=== PATIENT | male | born 1945 | race Caucasian/White ===

== ENCOUNTER 2018-12-01 07:33 | Inpatient (IN) | payer MEDICARE, OTHER, SELFPAY ==
[2018-11-26 09:45] VITALS: BMI 31.3
[2018-12-01] VITALS (14 sets, daily range): BP systolic 90–159; BP diastolic 47–93; PULSE 65–86; RESP 9–20; TEMP 36.1–37; O2SAT 88–99; BMI 31.5
[2018-12-01] MEDS: LACTATED RINGERS 1,000 ML 42 ML IV ×2 (08:00→12:30)
[2018-12-01] MEDS: PREGABALIN 75 MG CAPSULE PO (08:14)
[2018-12-01] MEDS: ACETAMINOPHEN 325 MG TABLET 975 MG PO ×3 (08:14→19:51)
[2018-12-01] MEDS: CELECOXIB 200 MG CAPSULE PO (08:15)
--- NOTE | 2018-12-01 09:45 | DI.RAD.S_ITS ---
PROCEDURE: XR PELVIS 1-2V INDICATIONS: anterior right YSABEL TECHNIQUE: 1 view of the lower pelvis acquired. COMPARISON: None. FINDINGS: Bones: Patient is status post right hip arthroplasty, with hardware components in expected positions. The hip joint appears congruent. The visualized bony structures appear intact. Soft tissues: Overlying postoperative changes are noted. No suspicious soft tissue densities. IMPRESSION: Post right total hip arthroplasty changes with anatomic right hip alignment. Dictated by: Jeramie Bishop M.D. on 12/01/2018 at 14:14 Approved by: Jreamie Bishop M.D. on 12/01/2018 at 14:14
--- NOTE | 2018-12-01 10:41 | PM.PREOP ---
Pre-operative Note Interval Note History & Physical reviewed/Exam performed by Physician: Yes Changes to H&P: No
[2018-12-01] MEDS: TRANEXAMIC ACID 1,000 MG VIAL 2000 MG INJ ×2 (10:58→12:50)
[2018-12-01] MEDS: CEFAZOLIN 2 GM/100 ML FROZ.PIGGY IV ×2 (11:02→19:51)
--- NOTE | 2018-12-01 11:48 | SUR.OPER ---
Supine, head on pillow, torso on pink pad positioner. Iliac crest at flex of foot end of table. Gel roll under operative hip. Both arms secured on arm boards <90 degrees abduction.
[2018-12-01] MEDS: ROPIVACAINE 0.5% PF 5 MG/ML 20ML VIAL 60 ML INJ (11:54)
[2018-12-01] MEDS: MORPHINE 4 MG/ML INJ INJ (11:57)
[2018-12-01] MEDS: KETOROLAC 30 MG/ML VIAL IV (11:57)
--- NOTE | 2018-12-01 13:24 | PM.OP.1 ---
Operative Date/Time/Diagnoses Date of procedure: 12/01/18 Time of procedure: 13:24 Pre-op diagnosis: Right hip degenerative joint disease Post-op diagnosis: same Procedure & Clinicians Procedure: Right total hip arthroplasty via direct anterior approach (CPT code 27289 with patient care assistant) Same procedure as scheduled: Yes Indications: Patient is an 73-year-old male with severe right hip DJD. The patient has pain with activities and at rest, limited ambulation and activity tolerance, difficulties with ADLs, and failure of conservative treatment. We have discussed the nature of condition, treatment options, risks and benefits, and patient elects to proceed with total hip arthroplasty via direct anterior approach and gives informed consent. Surgeon: Delonte Hopkins Production Or Plant Engineer: Huseyin Mitchell Anesthesia Type: General and Spinal Operative Notes Closure Type: primary Specimen(s): none sent Prosthetic devices, grafts, tissues, transplants, or devices: Acetabulum: Nelson and Nephew R3 acetabular component size 58 mm Femoral component: Nelson and Nephew Anthology stem size 10 with standard offset Femoral head: 36 mm + 4 Oxinium Estimated Blood Loss (mL): 150 Blood products transfused: none Procedure in detail: After satisfactory induction anesthetic and administration of antibiotics patient placed supine on the Butler table with both feet in the ski boots and all bony prominences well padded. Right hip and lower extremity prepped and draped in usual sterile fashion then incision created beginning just distal and lateral to the ASIS. Carried sharply through the skin and subcutaneous tissue down to the fascia overlying the TFL which was then divided longitudinally. Muscle belly was stripped posteriorly and the intermuscular interval developed. Retractor placed on the superior femoral neck and a Gelpi retractor placed distally. Anterior circumflex vessels identified and cauterized then the pericapsular fat was stripped off the anterior capsule. Capsulotomy performed and and inferior capsule capsulotomy and release was performed. Lateral capsulectomy was performed. Level of the femoral neck cut was identified fluoroscopically and the femoral neck completed with the oscillating saw. Femoral head removed with corkscrew device. Acetabular retractors then placed and acetabular labrum and osteophytes were excised. Sequential reaming of the acetabulum to 57 mm was performed with an excellent circumferential ream and fit with the trial. The fit and position of the trial were confirmed with fluoroscopy. Size 58 mm Nelson Nephew R3 acetabular component was selected inserted and impacted into position under fluoroscopic guidance. After satisfactory position and fixation achieved permanent liner then inserted. The leg was then extended externally rotated maximally and abducted and proximal femoral retractors placed. Lateral femoral neck then entered with a box osteotome, then sequential broaching was performed, fluoroscopic images checked with the #[address] to confirm satisfactory position and alignment. Sequential broaching was performed to size 10 and the 10 broach was confirmed satisfactory and left in place for trial reduction which yielded excellent leg length range of motion and stability characteristics and all confirmed in good position with fluoroscopy. The hip was then dislocated and the broach replaced with a permanent size 10 Nelson and Nephew anthology component with a standard offset. Another trial reduction was performed with a +4 ball has was preoperatively templated and this yielded the above characteristics. Trial ball was then replaced with a 36 mm +4 Oxinium head. Hip was reduced and final fluoroscopic images taken confirming satisfactory placement and position of all implants. The hip was stable to at least 90? of external rotation. Hip was copiously irrigated and periarticular soft tissues infiltrated with combination of ropivacaine morphine and Toradol. TFL fascia closed with a running 1. Vicryl. Subcutaneous layer closed with 2 O Vicryl in intracuticular locking stitch as well as skin glue. Sterile dressings applied anesthetic terminated and patient taken to postanesthetic recovery in satisfactory condition. Complications: none Post-operative Condition: stable Disposition: PACU Plan for aftercare: Patient will be admitted to the acute care [facility], and anticipate discharge on postop day 1 with follow-up in office in 10-14 days. Outpatient physical therapy will be arranged and patient will continue to gradually increase activity as tolerated.
--- NOTE | 2018-12-01 14:18 | PC.NURSE ---
Pt weighs 94.4kg
[2018-12-01] MEDS: LACTATED RINGERS 1,000 ML 125 ML IV ×2 (14:27→21:52)
--- NOTE | 2018-12-01 14:57 | CM.MNRNOTE ---
Post-op: Arrived to room 206 at 1400. Wide awake and alert, oriented X3. BLE's with numbness, R>L. Able to wiggle toes, feet are pink and warm w/ cap refill <2 sec. Dressing to R hip C/D/I. Room air, vitals stable. Rated R hip discomfort /10, given scheduled Tylenol. Denies N/V. SCD's to BLE's. Oriented to room and call light, encouraged to make needs known. Call light in reach, bed alarm on. Urinal within reach.
[2018-12-01] MEDS: ASPIRIN EC 81 MG TABLET PO (19:51)
[2018-12-01] MEDS: HYDROCODONE/ACET 5/325 TABLET 1 TAB PO (22:30)
[2018-12-02 00:19] VITALS: BP 118/68; PULSE 88; RESP 14; TEMP 36.6; O2SAT 95
--- NOTE | 2018-12-02 01:25 | PC.NURSE ---
Addendum entered by Germaine Torres R.N. 12/02/18 05:53: Slept most of night. States pain is 1/10 this morning and declines ice and/or pain meds. Still with numbness in anterior right upper leg from knee to approximately 6 up. Original Note: 0020 Patient is alert and oriented. Breath sounds CTA with RA sat of 95%. HRR. Denies nausea. BT present and has passed flatus. Voiding per urinal; denies dysuria, frequency or urgency. Is able to turn himself in bed. Aquacel dressing to anterior right hip is CDI. States pain is minimal at 1/10; ice pack applied. Has numbness in anterior right thigh but otherwise CMS is intact. Is unable to lift right leg off bed but can move the leg. SCD's applied at shift change. Fall risk score is moderate; bed alarm is activated. rooming in.
[2018-12-02] MEDS: CEFAZOLIN 2 GM/100 ML FROZ.PIGGY IV (03:02)
[2018-12-02 06:18] VITALS: BP 150/75; PULSE 87; RESP 16; TEMP 36.8; O2SAT 95
[2018-12-02 07:05] LABS: Hemoglobin 12.8 g/dL (13.5-17.5)
[2018-12-02 07:55] VITALS: BP 126/74; PULSE 81; RESP 18; TEMP 36.9; O2SAT 95
[2018-12-02 09:01] VITALS: PULSE 80; RESP 19; O2SAT 94
--- NOTE | 2018-12-02 09:08 | CM.DANOTE ---
DCP; Case received, EMR reviewed and met with patient. Introduced self and role. Was able to obtain baseline health history from patient. , Rosio, at bedside. DCP template/assessment completed with information currently available. Patient is a 73 year old male who admitted yesterday morning to the care of the orthopedic team. [facility] for a surgical procedure. He had right hip surgery, secondary to history of osteoarthritis. Met with patient in room. Pleasant, alert and oriented. Spouse, Rosio, also at bedside. They both reside on [place]. Patient is independent at home. He has outpatient P.T. already set up, but has not yet worked with physical therapy team. P: Patient is to be discharged home today, pending working with physical therapy team. Lizbeth Owen RN/Clinic Administrator
[2018-12-02] MEDS: SODIUM CHLORIDE 0.9% FLUSH 10 ML IV (09:37)
[2018-12-02] MEDS: HYDROCODONE/ACET 5/325 TABLET 1 TAB PO ×2 (09:38→12:31)
[2018-12-02] MEDS: ACETAMINOPHEN 325 MG TABLET 975 MG PO (09:38)
[2018-12-02] MEDS: ASPIRIN EC 81 MG TABLET PO (09:38)
--- NOTE | 2018-12-02 10:01 | PM.DS.1 ---
History of Present Illness History of Present Illness Date Patient Seen: 12/02/18 Time Patient Seen: 10:01 Chief complaint: [id number] Narrative: Please see HPI previously recorded in chart. Discharge Providers Provider Date of admission: 12/01/18 07:33 Discharge Date: 12/02/18 Consults: 12/01/18 14:00 Consult to Discharge Planning Routine Comment: Consult to Physical Therapy Evaluate & Treat Comment: Physician Instructions: post op YSABEL protocol Consult to Respiratory Therapy Evaluate & Treat Comment: Physician Instructions: Evaluate and treat Discharge provider: Katya Godinez PA-C Summary Hospital Course Discharge Diagnosis: S/p Right anterior YSABEL Hospital Course: Patient is an 73-year-old male with severe right hip DJD. The patient had pain with activities and at rest, limited ambulation and activity tolerance, difficulties with ADLs, and failure of conservative treatment. The nature of condition, treatment options, risks and benefits, were discussed with the patient and he elected to proceed with total hip arthroplasty via direct anterior approach and gave informed consent. He was taken to the operating room 12/01/18 where he underwent a right anterior total hip arthroplasty with Dr. Hopkins which he tolerated well without complications. Afterwards he was taken to the acute care [facility] where he has been progressing well postoperatively. Post op day #1 his pain has been well controlled with Hydrocodone which he has tolerated without rash or itching. He has not yet mobilized about the room, but will later today with physical therapy. He is voiding normally and has tolerated a diet. He has a good support system at home and his will be caring for him. He will be discharged with supply of [facility] for pain and Lovenox for DVT prophylaxis. Patient is medically stable for discharge later today pending clearance by physical therapy. Status at Discharge Cognitive/behavioral status at discharge: oriented Functional status at discharge: uses cane/walker Overall status at discharge: patient is progressing back to baseline Exam Vital Signs (past 8 hours): - 12/02/18 06:18 12/02/18 07:55 12/02/18 09:01 Temperature 98.2 F 98.4 F Pulse Rate 87 81 80 Respiratory Rate 16 18 19 Blood Pressure 150/75 H 126/74 Pulse Oximetry 95 95 94 Oxygen Delivery Method Room Air Oxygen Flow Rate 0 Narrative Exam Narrative: 73 year old male resting comfortably in bed. Alert and oriented in no acute distress. Dressing in place over right anterior hip is CDI. Intact motor function in distal extremity. SILT. Calves soft, compressible. Palpable pedal pulse. Objective Labs Result Diagrams: 12/02/18 06:42 Labs: Laboratory Results - last 24 hr 12/02/18 06:42 Hgb 12.8 L Hct 38.0 L Discharge Plan Discharge Plan Patient Disposition: Home Discharge comment: Home this afternoon if cleared by PT Discharge Med Rec/Prescriptions Prescriptions: New aspirin 81 mg Tablet,Delayed Release (Dr/Ec) 81 mg PO BID Qty: 40 RF: 0 hydrocodone-acetaminophen 5-325 mg Tablet 1 tab PO Q4HR PRN (Reason: Pain, Moderate (4-6)) Qty: 40 RF: 0 enoxaparin [Lovenox] 40 mg/0.4 mL Syringe 40 mg subcut DAILY 9 Days RF: 0 Continued pravastatin 40 mg Tablet 40 mg PO QPM RF: 0 acetaminophen [Tylenol Extra Strength] 500 mg Tablet 1,000 mg PO DAILY PRN (Reason: Pain) RF: 0 ibuprofen 200 mg Tablet 400 mg PO Q6H PRN (Reason: Pain) RF: 0 omeprazole 20 mg Capsule,Delayed Release(Dr/Ec) 20 mg PO QPM RF: 0 Follow up/Referrals: Delonte Hopkins MD [Physician] - As previously scheduled Provider Discharge Instructions Diet: Diet as Tolerated Activity: Weight bear as tolerated. Please use walker or cane for support. Cold/Heat Therapy: Ice packs as needed. Other treatments: Please see [facility] guide. Skin/Wound/Dressing Care Report to your healthcare provider any signs of infection, such as:: chills, fever, night sweats, unusual drainage and unusual redness Dressing: Dressing is to remain in place. Please let the office know if dressing becomes saturated. Visit Report/Discharge Packet Instructions: DI for Hip Replacement Visit Report Forms: Stroke Signs & Symptoms Quality VTE Deep Vein Thrombosis/Pulmonary Embolism Present on Admission: No
--- NOTE | 2018-12-02 10:59 | PT.IIE ---
Addendum entered and electronically signed by Padmini Carmona PT 12/02/18 11:19: FWW dispensed. Original Note: Current Diagnoses Unilateral primary osteoarthritis, right hip (12/01/18) Spinal stenosis, lumbar region with neurogenic claudication (12/01/18) Strain of muscle, fascia and tendon at neck level, initial encounter (12/01/18) Surgery Performed Operation Date: 12/01/18 09:45 Actual Procedures p Total Hip Arthroplasty/Anterior Approach(Right) - Delonte Hopkins MD Surgical History (Last Updated 11/26/18 @ 10:13 by Meghana Elliott RN) H/O vasectomy (Acute) History of bilateral knee arthroplasty (Acute ~2009) Hx of cholecystectomy (Acute ~2010) Hx of eye surgery (Acute ~12/2017) S/P epidural steroid injection (Acute) Medical History (Last Updated 11/26/18 @ 10:13 by Meghana Elliott RN) DDD (degenerative disc disease), lumbar (Acute) GERD (gastroesophageal reflux disease) (Acute) HLD (hyperlipidemia) (Acute) Kidney stones (Acute) Osteoarthritis (Acute) Physical Therapy Inpatient Evaluation/Re-Eval M1 PT/OT-IP Prior Functional Status Start: 12/02/18 09:32 Freq: NEEDED Status: Active Protocol: Document 12/02/18 10:39 AW (Rec: 12/02/18 10:59 AW [id number]) Medical Review Prior Functional Status Medical History Reviewed Yes Diet/Fluid Consistency Regular Communication Able to make needs known Mobility and Gait Independent with all functional mobility, no need for assistive device. No limitation in ambulation distance Activities of Daily Living and IADL's Independent Social History Household Members spouse Living Arrangements House Number of Floors (Floors) Two Floors Number of Stairs To Enter/Railing? 2 KAY without railing Home Environment High Toilet,Walk in Shower Home Equipment Straight Cane,Crutches,Raised Toilet Seat w/Armrests,Shower Seat without Backrest Employment Status Retired Additional Social History Comment Pt lives with his spouse who is available to assist as needed. He is able to live on the main level for at least a week. He has a standard walker . Will need FWW prior to discharge. M2 PT-IP Current Condition Start: 12/02/18 09:32 Freq: NEEDED Status: Active Protocol: Document 12/02/18 10:39 AW (Rec: 12/02/18 10:59 AW [id number]) Physical Therapy Current Condition Current Condition Evaluation Date 12/02/18 Treatment Diagnosis 0950 Onset Date 102 Precautions Anterior Hip Precautions No Hip Extension,No Hip External Rotation Weight Bearing Status Weight Bearing Status Weight Bear as Tolerated Allowed Weight Bearing Amount (enter % WBAT with walker or #) (%) M3 PT-IP Subjective Start: 12/02/18 09:32 Freq: NEEDED Status: Active Protocol: Document 12/02/18 10:39 AW (Rec: 12/02/18 10:59 AW [id number]) Subjective Physical Therapy Visit Type Type Initial Evaluation Visit Start Time 09:50 Visit Stop Time 10:28 Total Visit Minutes 38 Number of TRACK INSPECTING SUPERVISOR Visits 0 Physical Therapy Visit Comments Patient Comments Pt willing to work with PT Patient Goals He hopes to discharge home with spouse support as needed. Therapy Pain Assessment Pain When Pain Assessed During Mobility Pain Present Pain Present Pain Reported Location Right Hip Intensity 4 Scale Used 2/10 at rest; 4/10 with mobility, including stairs Pain Management Techniques Timing of Activity with Medications M4 PT-IP Mobility and Gait Start: 12/02/18 09:32 Freq: NEEDED Status: Active Protocol: Document 12/02/18 10:39 AW (Rec: 12/02/18 10:59 AW [id number]) PT-Bed Mobility Assessment Supine to Sit Supine to Sit Independent Scooting Scooting to Edge of Bed Independent PT-Transfer Assessment Sit to and From Stand Sit to and from Stand Standby Assistance,Use of Upper Extremities Equipment Transfer Assistive Device Gait Belt,Front Wheeled Walker Orthotic/Prosthetic Devices or Brace: No Transfers Transfer Destination Bed,Chair Transfer Technique pt ambulated to bed, chair Transfer Ability Level of Assist Standby Assistance Comments Mobility Comments Pt completed transfers using FWW SBA and min verbal cues for hand placement Gait Assessment Gait Gait Assistance Required: Standby Assistance Distance (Feet) 200 Able to Maintain Weight Bearing Status Yes During Gait Assistive Devices Assistive Device Gait Belt,Front Wheeled Walker Orthotic/Prosthetic Devices or Brace: No Gait Deviations General Gait Pattern Antalgic,Decreased Stride Length,Decreased Feet Clearance Factors Limiting Gait Function Factors Limiting Gait Function Decreased Activity Tolerance, Decreased Strength,Pain Comments Gait Comments Pt ambulated 200 ft using FWW SBA with step-through pattern. He reported 2 point increase in pain with mobility. Stair Climbing Assessment Evaluation Level of Assist On Stairs Standby Assistance Devices Stair Climbing Assistive Devices Straight Cane Technique/Endurance Stair Climbing Direction Ascend and Descend Stair Climbing Technique Step to Step Number of Steps Climbed 3 Query Text: Stair Climbing Set # Repetitions (reps) 1 Comments Stair Climbing Comments Pt went up/down 3 steps using SPC held in left hand, demonstrating good understanding and execution of strategy. Pt's reports the stairs are wide enough for her to be able to offer hand- hold assist along with the cane if needed. PT-Balance Assessment Sitting Balance and Reactions Static Sitting Balance Ability Good Dynamic Sitting Balance Ability Good Standing Balance and Reactions Static Standing Balance Ability Good Dynamic Standing Balance Ability Good Device Used FWW M5 PT-IP Objective Assessments Start: 12/02/18 09:32 Freq: NEEDED Status: Active Protocol: Document 12/02/18 10:39 AW (Rec: 12/02/18 10:59 AW [id number]) Orientation Orientation/Cognition Level of Alertness Alert Orientation Name,Date,Place,Situation Language Function Ability No Deficits Noted Safety Awareness Understands Safety Issues Memory Description No Deficits Noted Gross Range of Motion Upper Extremity ROM Assessment Within Functional Limits Lower Extremity ROM Assessment Right Impaired Strength Upper Extremity Strength Assessment Within Functional Limits Lower Extremity Strength Assessment Right Impaired Coordination Assessment Gross Coordination Gross Coordination WNL Sensation Assessment Sensation Gross Sensation Right LE Impaired Light Touch Impaired Sensation Description Numbness Comments Sensation Comments Pt reports area of numbness from knee joint line to ~6 above knee on anterior thigh. Muscle Tone Muscle Tone WNL Yes M6 PT-IP Treatment Start: 12/02/18 09:32 Freq: NEEDED Status: Active Protocol: Document 12/02/18 10:39 AW (Rec: 12/02/18 10:59 AW [id number]) Physical Therapy Treatment Exercises Exercises Ankle Pumps,Gluteal Sets,Quad Sets,Heel Slides Education Education Provided Precautions,Weight Bearing Status,Post-Op Packet,Safety Other Treatments Other Treatment Performed Discussed post-op exercises, including dosing, to be performed until pt attends outpatient PT. M7 PT-IP Assessment and Plan Start: 12/02/18 09:32 Freq: NEEDED Status: Active Protocol: Document 12/02/18 10:39 AW (Rec: 12/02/18 10:59 AW [id number]) PT Summary Assessment and Plan Potential Rehabilitation Potential Excellent Status of Condition at Evaluation Stable Summary Impairments Pain,ROM,Strength,Gait, Activity Tolerance Progress Towards Goals Progressing Toward Goals Assessment Summary Pt is an active 73 yo man who was seen for PT evaluation on POD1 following R YSABEL with anterior approach. he has history of bilateral TKA. PLOF : Independent with all functional mobility, no limitation in ambulation distance. Also independent with all ADL's. CLOF: Pt required SBA at most for transfers, gait with FWW, and stairs with SPC. PT reviewed plan of care, post-op exercises, anterior hip precautions, and weightbearing status with pt able to teach back all. Pt has a standard walker at home, but would benefit from FWW for home use. PT recommending discharge to home with spouse assist when cleared by orthopedics and follow up with outpatient PT which is scheduled for early December. Goals Bed Mobility Goal Independent Transfer Goal Independent Gait Goal Independent Gait Distance 200 Other Goals Up/down 2 stairs using SPC SBA Days to Meet Goals 1 Frequency of Treatment Frequency Of Treatment Twice a Day Treatment Plan Physical Therapy Treatment Plan Transfer Training,Gait Training,Therapeutic Exercise, Balance Retraining,Post Op Education,Discharge Planning, Hot or Cold Pack,Neuromuscular Re-ed,Coordination Retraining ,Manual Therapy Other Recommendations and Next Treatment reinforce stairs with SPC Focus Recommendations To Nursing Amount of Assist Needed Standby Assistance Discharge Recommendations PT Discharge Recommendations Home with Assistance, Outpatient PT Equipment Needed for Home Before FWW for home use to be Discharge dispensed prior to discharge
[2018-12-02 12:05] VITALS: BP 133/75; PULSE 72; RESP 18; TEMP 36.6; O2SAT 98
[2018-12-02] MEDS: ENOXAPARIN 40 MG/0.4 ML SYRINGE SUBCUT (12:08)
--- NOTE | 2018-12-02 15:33 | PC.NURSE ---
Late entry: Patient discharged home approx 1300 IV dc'd intact. Reviewed all instructions thoroughly with patient. Given scripts for Vicodin and Lovenox. Did Lovenox teaching and patient felt able to give injections at home (and he did after a previous surgery as well). Reviewed s/sx and concerns with which to call MD. Patient verbalized understanding of instructions and stated no further questions. All personal belongings sent with patient at discharge. Wheeled out to private vehicle by nursing staff.
== END 2018-12-02 15:36 | disposition home or self-care (01) | DRG 470 ==
PROVIDERS: Admitting Provider Orthopaedic Surgery; Visit Provider Orthopaedic Surgery
PROC: 0SR902Z Replacement of Right Hip Joint with Metal on Polyethylene Synthetic Substitute, Open Approach (ICD-10-PCS; CPT 27130; principal; 2018-12-01 09:45)
DX: M16.11 Unilateral primary osteoarthritis, right hip (principal); E78.5 Hyperlipidemia, unspecified; K21.9 Gastro-esophageal reflux disease without esophagitis
CPT/HCPCS: 36415; 72170; 85014; 85018; 94760; 97110; 97161; C1776; J0690; J1100; J1650; J1885; J2250; J2270; J2405; J2704; J3010